=== PATIENT | male | born 1995 ===

== ENCOUNTER → 2018-02-12 15:28 | Outpatient (REF) | payer SELFPAY ==
[2018-02-12 16:22] LABS: Add Manual Diff / Slide Review NO; Basophils Percent Auto 0.5 % (0-2); Eosinophils Percent Auto 0.5 % (2-4); Hematocrit 41.5 % (41-53); Hemoglobin 14.1 g/dL (13.5-17.5); Lymphocytes Percent Auto 30.3 % (25-40); Mean Corpuscular HGB Conc 33.9 % (30-36); Mean Corpuscular Hemoglobin 30.7 PG (26-34); Mean Corpuscular Volume 90.3 fL (80-100); Monocytes Percent Auto 5.7 % (3-14); Neutrophils Absolute Auto 4 /uL (3000-5900); Platelet Count 261 X10^3/uL (150-400); Red Cell Distribution Width 12.8 % (11.6-14.8)
== END ==
LOC: LAB 15:28
DX: Z00.00 Encounter for general adult medical examination without abnormal findings (principal)
CPT/HCPCS: 85025